=== PATIENT | female | born 1975 | race Two or more races ===

== ENCOUNTER → 2023-10-12 | Emergency (ER) | payer BC ==
[~2023-10-12] VITALS: Ht 170.2 cm; Wt 81.6 kg
[~2023-10-12] MED LIST: ATENOLOL25 MG PO
== END | disposition home or self-care (01) ==
LOC: ER 13:37
DX: T75.4XXA Electrocution, initial encounter (principal); I10 Essential (primary) hypertension; I47.19 Other supraventricular tachycardia